=== PATIENT | female | born 1955 | race Caucasian/White ===

== ENCOUNTER → 2020-06-27 13:23 | Outpatient (CLI) | payer MEDICARE, OTHER, SELFPAY ==
--- NOTE | ~2020-06-27 | MM_ITS ---
EXAMINATION: MM screening [facility] BI w liza HISTORY: Screening mammogram TECHNIQUE: Craniocaudal and mediolateral oblique 3-D tomosynthesis images were obtained and synthetic 2-D images were generated. CAD analysis was submitted and interpreted. COMPARISON: 04/11/2019, 01/14/2019, 06/13/2016 BREAST PARENCHYMAL COMPOSITION: The breasts are almost entirely fatty. FINDINGS: Scattered benign-appearing calcifications are present. There is no evidence of suspicious m ass, calcification, or architectural distortion to suggest malignancy in either breast. There has bee n no suspicious interval change. IMPRESSION: 1. No mammographic evidence of malignancy. 2. Recommend routine screening mammography in one year. BI-RADS Category 2: Benign finding(s). Reviewed, dictated and finalized at location A. NG PRESS OPERATOR
== END ==
PROVIDERS: PCP Family Medicine; Visit Provider Family Medicine
DX: Z12.31 Encounter for screening mammogram for malignant neoplasm of breast (principal)
CPT/HCPCS: 77063; 77067

== ENCOUNTER → 2021-10-30 09:51 | Outpatient (CLI) | payer MEDICARE, OTHER, SELFPAY ==
--- NOTE | ~2021-10-30 | MM_ITS ---
EXAMINATION: MM screening [facility] BI w liza HISTORY: Screening TECHNIQUE: Craniocaudal and mediolateral oblique 3-D tomosynthesis images were obtained and synthetic 2-D images were generated. CAD analysis was submitted and interpreted. COMPARISON: Comparison to multiple prior studies sequentially, with oldest reviewed study dated 12/15. BREAST PARENCHYMAL COMPOSITION: Breast composed of scattered areas of fibroglandular density FINDINGS: There is no evidence of suspicious mass, calcification, or architectural distortion to sugg est malignancy in either breast. There has been no suspicious interval change. IMPRESSION: 1. No mammographic evidence of malignancy. 2. Recommend routine screening mammography in one year. BI-RADS Category 1: Negative Reviewed, dictated and finalized at location A.
== END ==
PROVIDERS: PCP Family Medicine; Visit Provider Family Medicine
DX: Z12.31 Encounter for screening mammogram for malignant neoplasm of breast (principal)
CPT/HCPCS: 77063; 77067

== ENCOUNTER 2022-05-19 01:25 | Day surgery (SDC) | payer MEDICARE, OTHER, SELFPAY ==
[2022-05-07 08:49] VITALS: BMI 44.5
[2022-05-19 08:46] VITALS: BP 170/98; PULSE 64; RESP 18; TEMP 36.2; O2SAT 99
[2022-05-19] MEDS: LACTATED RINGERS 1,000 ML 150 ML IV CONT (08:54)
--- NOTE | 2022-05-19 09:16 | PM.HPGS ---
History of Present Illness History of Present Illness Consent: Risks, benefits, and alternatives have been discussed and questions answered. Patient agrees to proceed with procedure. Chief complaint: GERD, neoplasm screening Narrative: Pat Martinez is a 67 year old female Presents for screening colonoscopy as well as EGD. Patient reports a history of chronic acid reflux disease. Currently well controlled on omeprazole 40mg p.o. daily. She notices prompt recurrence of heartburn when discontinuing this medication. Patient denies any bleeding. She has no dysphagia. She has had no weight loss. Previous EGD 5 years ago is reported to be unremarkable. Patient desires follow-up because of chronic symptoms an EGD will be performed today. Screening colonoscopy advised because of History of colon polyps.. Patient reports that her weight appetite and bowel movements are normal. Patient denies abdominal pain. She has had no bleeding. Family history noncontributory. Patient has had previous colon polyps on several previous occasions. Review of Systems Review of Systems: Review of systems noncontributory. [facility] Social History Social History Smoking status: Former smoker Tobacco type: cigarettes Living arrangements: with family Spiritual care concerns: No Meds Home Medications and Allergies Home Medications Medication Instructions Recorded Confirmed Type sodium,potassium,mag sulfates 17.5 See Rx Instructions PO .COMPLEX 04/08/22 Rx gram-3.13 gram-1.6 gram oral soln #354 mL (Suprep Bowel Prep Kit) aspirin 81 mg tablet 81 mg PO DAILY 05/07/22 05/07/22 History calcium 100 mg capsule 100 mg PO DAILY 05/07/22 05/07/22 History cholecalciferol (vitamin D3) 25 25 mcg PO DAILY 05/07/22 05/07/22 History mcg (1,000 unit) tablet (Vitamin D3) gabapentin 300 mg capsule 300 mg PO BID 05/07/22 05/07/22 History hydrochlorothiazide 25 mg tablet 25 mg PO DAILY 05/07/22 05/07/22 History levothyroxine 125 mcg tablet 125 mcg PO DAILY 05/07/22 05/19/22 History lisinopril 40 mg tablet 40 mg PO BID 05/07/22 05/07/22 History multivitamin 1 tablet PO DAILY 05/07/22 05/07/22 History omega-3 fatty acids 1,000 mg PO DAILY 05/07/22 05/07/22 History omeprazole 40 mg capsule,delayed 40 mg PO DAILY 05/07/22 05/07/22 History release Allergies Allergy/AdvReac Type Severity Reaction Status Date / Time adhesive Allergy Mild Blister Unverified 05/19/22 08:48 amlodipine Allergy Swelling Verified 05/19/22 08:48 acetaminophen AdvReac Mild NAUSEA/VOMI Unverified 05/19/22 08:48 TING hydrocodone AdvReac Mild NAUSEA/VOMI Unverified 05/19/22 08:48 TING meperidine AdvReac Mild NAUSEA/VOMI Unverified 05/19/22 08:48 TING morphine AdvReac Mild NAUSEA/VOMI Unverified 05/19/22 08:48 TING Vital Signs Vital Signs - 24 hr 05/19/22 08:46 Temperature 97.2 F L Pulse Rate 64 Respiratory Rate 18 Blood Pressure 170/98 H Pulse Oximetry 99 Oxygen Delivery Room Air Exam Narrative: Physical exam reveals patient to be alert. Vital signs stable. HEENT exam is unremarkable. Patient is anicteric. Lungs are clear to auscultation and percussion. Heart is without murmur or extra sounds. Abdomen Is obese. bowel sounds are present soft nontender with no organomegaly. Digital external rectal exam is normal. Assessment and Plan Assessment and plan (1) GERD (gastroesophageal reflux disease): Code(s): K21.9 - Gastro-esophageal reflux disease without esophagitis Status: Acute Assessment and Plan: Patient has chronic GE reflux. Plan to continue anti-reflux measures. Omeprazole 40mg p.o. daily is required. Further recommendations may be given after endoscopy. (2) History of colon polyps: Code(s): Z86.010 - Personal history of colonic polyps Status: Acute Assessment and Plan: Patient is had colon polyps on several previous occasions. Plan for surveillance col
--- NOTE | 2022-05-19 10:12 | SUR.OPER ---
EGD: [id number] Colonoscopy began at 1010
--- NOTE | 2022-05-19 10:13 | P.PNAN_ITS ---
Anes - Initial Pre Proc Eval Procedure: Operation Date: 05/19/22 10:00 Proposed Procedures p Esophagogastroduodenoscopy & Screening Colonoscopy - Polo Chambers MD Date/Time: 05/19/22 10:13 Surgeon: Polo Chambers MD Pre Op Diagnosis: GERD, neoplasm screening Patient Data Age: 67 Gender: F Height: 1.7 m Weight: 97.2 kg Last Vital Signs Temp 97.2 F L 05/19/22 08:46 Pulse 64 05/19/22 08:46 Resp 18 05/19/22 08:46 BP 170/98 H 05/19/22 08:46 Pulse Ox 99 05/19/22 08:46 O2 Del Method Room Air 05/19/22 08:46 Allergies Allergy/AdvReac Type Severity Reaction Status Date / Time adhesive Allergy Mild Blister Unverified 05/19/22 08:48 amlodipine Allergy Swelling Verified 05/19/22 08:48 acetaminophen AdvReac Mild NAUSEA/VOMI Unverified 05/19/22 08:48 TING hydrocodone AdvReac Mild NAUSEA/VOMI Unverified 05/19/22 08:48 TING meperidine AdvReac Mild NAUSEA/VOMI Unverified 05/19/22 08:48 TING morphine AdvReac Mild NAUSEA/VOMI Unverified 05/19/22 08:48 TING Home Medications Medication Instructions Recorded Confirmed Type sodium,potassium,mag sulfates 17.5 See Rx Instructions PO .COMPLEX 04/08/22 Rx gram-3.13 gram-1.6 gram oral soln #354 mL (Suprep Bowel Prep Kit) aspirin 81 mg tablet 81 mg PO DAILY 05/07/22 05/07/22 History calcium 100 mg capsule 100 mg PO DAILY 05/07/22 05/07/22 History cholecalciferol (vitamin D3) 25 25 mcg PO DAILY 05/07/22 05/07/22 History mcg (1,000 unit) tablet (Vitamin D3) gabapentin 300 mg capsule 300 mg PO BID 05/07/22 05/07/22 History hydrochlorothiazide 25 mg tablet 25 mg PO DAILY 05/07/22 05/07/22 History levothyroxine 125 mcg tablet 125 mcg PO DAILY 05/07/22 05/19/22 History lisinopril 40 mg tablet 40 mg PO BID 05/07/22 05/07/22 History multivitamin 1 tablet PO DAILY 05/07/22 05/07/22 History omega-3 fatty acids 1,000 mg PO DAILY 05/07/22 05/07/22 History omeprazole 40 mg capsule,delayed 40 mg PO DAILY 05/07/22 05/07/22 History release Patient hx anesthesia problems: none Family hx anesthesia problems: none Results Review: All pre-operative results and documents have been reviewed as part of the pre- operative evaluation. [facility] Social History Social History Smoking status: Former smoker Tobacco type: cigarettes Living arrangements: with family Spiritual care concerns: No Anes - Eval Final PreProcedure Day of Procedure 05/19/22 10:13 Patient weight: normal Heart: regular rate and rhythm Lungs: clear to auscultation Airway: Mallampati scale class II Neurological: alert and oriented Last oral intake: >/= 8 hours ASA classification: III Emergent: no Anesthetic plan: proceed Anesthesia type and monitoring: general GIVS and standard monitoring Results Review: All pre-operative results and documents have been reviewed as part of the pre- operative evaluation. Informed Consent: The patient's anesthetic plan and its attendant risks and benefits were discussed with the patient/family/POA. Questions were solicited and answers provided to the satisfaction of the patient/family/POA.
[2022-05-19 10:25] VITALS: BP 124/72; PULSE 72; RESP 18; O2SAT 100
[2022-05-19 10:35] VITALS: BP 126/76; PULSE 67; RESP 18; O2SAT 99
[2022-05-19 10:45] VITALS: BP 128/86; PULSE 63; RESP 18; O2SAT 98
== END 2022-05-19 10:53 | disposition home or self-care (01) ==
PROVIDERS: PCP Family Medicine; Visit Provider Internal Medicine Gastroenterology
PROC: 0DJ08ZZ Inspection of Upper Intestinal Tract, Via Natural or Artificial Opening Endoscopic (ICD-10-PCS; CPT 43235; principal; 2022-05-19 10:00)
DX: Z12.11 Encounter for screening for malignant neoplasm of colon (principal); K57.30 Diverticulosis of large intestine without perforation or abscess without bleeding; K64.8 Other hemorrhoids; Z86.010 Personal history of colon polyps; K21.9 Gastro-esophageal reflux disease without esophagitis; Z87.891 Personal history of nicotine dependence; E66.09 Other obesity due to excess calories; Z68.33 Body mass index [BMI] 33.0-33.9, adult
CPT/HCPCS: 43239; G0105; 87081; J2704; J7120

== ENCOUNTER → 2023-05-22 10:35 | Outpatient (CLI) | payer MEDICARE, OTHER, SELFPAY ==
--- NOTE | ~2023-05-22 | MM_ITS ---
EXAMINATION: MM screening [facility] BI w liza HISTORY: Screening TECHNIQUE: Craniocaudal and mediolateral oblique 3-D tomosynthesis images were obtained and synthetic 2-D images were generated. CAD analysis was submitted and interpreted. COMPARISON: Comparison to multiple prior studies sequentially, with oldest reviewed study dated 08/2014. BREAST PARENCHYMAL COMPOSITION: Breast composed of scattered areas of fibroglandular density FINDINGS: There is no evidence of suspicious mass, calcification, or architectural distortion to sugg est malignancy in either breast. There has been no suspicious interval change. IMPRESSION: 1. No mammographic evidence of malignancy. 2. Recommend routine screening mammography in one year. BI-RADS Category 1: Negative Reviewed, dictated and finalized at location A. OPERATOR
== END ==
PROVIDERS: PCP Family Medicine; Visit Provider Family Medicine
DX: Z12.31 Encounter for screening mammogram for malignant neoplasm of breast (principal)
CPT/HCPCS: 77063; 77067

== ENCOUNTER 2023-06-15 20:31 | Emergency (ER) | payer MEDICARE, OTHER, SELFPAY ==
[2023-06-15 20:34] VITALS: BP 179/115; PULSE 97; RESP 16; TEMP 36.7; O2SAT 100
[2023-06-15 20:49] LABS: Basophils Absolute Auto 0.1 K/mm3 (0.0-0.1); Basophils Percent Auto 1.1 % (0.2-1.2); Eosinophils Absolute Auto 0.3 K/mm3 (0-0.3); Eosinophils Percent Auto 4.5 % (0-4.4); Hematocrit 43.7 % (37.0-47.0); Hemoglobin 13.7 g/dL (12.0-15.0); Immature Granulocyte Absolute 0.01 K/mm3 (0.00-0.031); Immature Granulocyte Percent A 0.1 % (0-0.5); Lymphocytes Percent Auto 40.4 % (18.3-44.2); Mean Corpuscular HGB Conc 31.4 g/dl (32-36); Mean Corpuscular Hemoglobin 28.2 pg (26-34); Mean Corpuscular Volume 89.9 fl (80-100); Mean Platelet Volume 10.2 fl (7.4-10.4); Monocytes Absolute Auto 0.7 K/mm3 (0.1-0.6); Monocytes Percent Auto 10.2 % (2.6-8.5); Neutrophils Absolute Auto 3.1 K/mm3 (1.3-6.7); Neutrophils Percent Auto 43.7 % (45.5-73.1); Platelet Count Result 282 k/mm3 (150-375); Red Blood Count 4.86 M/mm3 (4.2-5.4); Red Cell Distribution Width 16.3 % (11.5-14.5); White Blood Count 7.2 K/mm3 (4.5-10.0)
[2023-06-15 20:59] LABS: Alanine Aminotransferase 31 U/L (6-35); Albumin Level 4.2 g/dL (3.5-5.1); Alkaline Phosphatase 89 U/L (38-126); Anion Gap 5 mmol/L (8-16); Aspartate Amino Transferase 34 U/L (14-36); Bilirubin,Total 0.6 mg/dL (0.2-1.3); Blood Urea Nitrogen 32 mg/dL (7-17); Calcium 9.7 mg/dL (8.4-10.2); Carbon Dioxide 28 mmol/L (22-30); Chloride 106 mmol/L (98-107); Estimated CRCL calculation 71 ml/min; Estimated Glomerular Filt Rate > 60; Glucose 115 mg/dL (65-110); Potassium 3.8 mmol/L (3.4-5.0); Sodium 139 mmol/L (137-145)
[2023-06-15 21:01] LABS: Partial Thromboplastin Time 27.8 SECONDS (22.3-36.8)
[2023-06-15] MEDS: LORazepam INJ (*CRX) 2 MG/ML VIAL 1 MG IM (22:35)
--- NOTE | 2023-06-15 23:36 | ED.GENADULT ---
HPI - General Adult General Chief complaint: Epistaxis Stated complaint: nose bleed Time Seen by Provider: 06/15/23 21:11 History of Present Illness HPI narrative: this is a 68-year-old female history of anxiety presenting with epistaxis. Patient started have bleeding of her nose earlier today. She went to [facility] 3 times throughout day. First time they controlled her bleeding with direct pressure, 1 and start rebleeding they packed it with Vaseline gauze, with that did not control bleeding a small rhino rocket. The rhino rocket and dislodged after the patient left. She came here requesting to see ENT. No other complaints. No use of blood thinners. Related Data Home Medications Medication Instructions Recorded Confirmed aspirin 81 mg tablet 81 mg PO DAILY 05/07/22 05/07/22 calcium 100 mg capsule 100 mg PO DAILY 05/07/22 05/07/22 cholecalciferol (vitamin D3) 25 25 mcg PO DAILY 05/07/22 05/07/22 mcg (1,000 unit) tablet (Vitamin D3) gabapentin 300 mg capsule 300 mg PO BID 05/07/22 05/07/22 hydrochlorothiazide 25 mg tablet 25 mg PO DAILY 05/07/22 05/07/22 levothyroxine 125 mcg tablet 125 mcg PO DAILY 05/07/22 05/19/22 lisinopril 40 mg tablet 40 mg PO BID 05/07/22 05/07/22 multivitamin 1 tablet PO DAILY 05/07/22 05/07/22 omega-3 fatty acids 1,000 mg PO DAILY 05/07/22 05/07/22 omeprazole 40 mg capsule,delayed 40 mg PO DAILY 05/07/22 05/07/22 release Allergies Allergy/AdvReac Type Severity Reaction Status Date / Time adhesive Allergy Mild Blister Verified 06/15/23 22:36 amlodipine Allergy Swelling Verified 06/15/23 22:36 hydrocodone AdvReac Mild NAUSEA/VOMI Verified 06/15/23 22:36 TING meperidine AdvReac Mild NAUSEA/VOMI Verified 06/15/23 22:36 TING morphine AdvReac Mild NAUSEA/VOMI Verified 06/15/23 22:36 TING PMFSH Past Medical History Medical History Anxiety Social History Social History Smoking status: Former smoker Tobacco type: cigarettes Living arrangements: with family Spiritual care concerns: No Exam Narrative: APPEARANCE: No apparent distress. Head: Bleeding from the right Nare, no visible lesion in the nose EYES: EOMI, NOSE: Atraumatic NECK: Trachea midline RESPIRATORY: No increased rate of breathing CARDIOVASCULAR: RRR, ABDOMINAL: Non-distended MUSCULOSKELETAl: No obvious deformities NEURO: Alert. Moving 4/4 extremities SKIN:: Warm, dry. Normal color PSYCHIATRIC: Normal affect Course Vital Signs Vital signs: Vital Signs Temperature 98.0 F 06/15/23 20:34 Pulse Rate 97 06/15/23 20:34 Respiratory Rate 16 06/15/23 20:34 Blood Pressure 179/115 H 06/15/23 20:34 Pulse Oximetry 100 06/15/23 20:34 Oxygen Delivery Room Air 06/15/23 20:34 Temperature 98.0 F 06/15/23 20:34 Pulse Rate 97 06/15/23 20:34 Respiratory Rate 16 06/15/23 20:34 Blood Pressure 179/115 H 06/15/23 20:34 Pulse Oximetry 100 06/15/23 20:34 Oxygen Delivery Room Air 06/15/23 20:34 Procedures Epistaxis Control bilateral: Epistaxis Control Date: 06/15/23 Time Out Performed: No Direct Inspection: yes and unable to visualize Clots Removed by: blowing nose Cautery Used: none Device Inserted: nasal tampon Device Size: 7 Patient Tolerated Procedure: well Complications: other (anxiety) Medical Decision Making MDM Narrative Medical decision making narrative: -Course: 68-year-old female presenting with epistaxis. Patient had dual route right a rocket placed that controlled her bleeding. She did have to receive anxiolysis due to a panic attack. Patient wants to see ENT however there is no indication for ENT consultation is her bleeding is controlled with the rhino rockets. Patient will be discharged with outpatient follow-up return precautions. -DDX includes but is not limi
[2023-06-15 23:54] VITALS: BP 127/79; PULSE 60; RESP 16; TEMP 36.6; O2SAT 100
== END 2023-06-15 23:55 | disposition home or self-care (01) ==
PROVIDERS: Physician Assistant; Emergency Provider Emergency Medicine; PCP Family Medicine
DX: R04.0 Epistaxis (principal); F41.9 Anxiety disorder, unspecified; Z87.891 Personal history of nicotine dependence; Z79.82 Long term (current) use of aspirin
CPT/HCPCS: 30901; 36415; 80053; 85025; 85610; 85730; 96372; 99283; J2060

== ENCOUNTER 2024-08-10 13:05 | Outpatient (CLI) | payer MEDICARE, OTHER, SELFPAY ==
--- NOTE | ~2024-08-10 | MM_ITS ---
EXAMINATION: MM screening [facility] BI w liza HISTORY: Screening TECHNIQUE: Craniocaudal and mediolateral oblique 3-D tomosynthesis images were obtained and synthetic 2-D images were generated. CAD analysis was submitted and interpreted. COMPARISON: Comparison to multiple prior studies sequentially, with oldest reviewed study dated 06/27. BREAST PARENCHYMAL COMPOSITION: Not Dense: The breasts are almost entirely fatty. FINDINGS: There is no evidence of suspicious mass, calcification, or architectural distortion to sugg est malignancy in either breast. There has been no suspicious interval change. IMPRESSION: 1. No mammographic evidence of malignancy. 2. Recommend routine screening mammography in one year. BI-RADS Category 1: Negative Reviewed, dictated and finalized at location A.
== END 2024-08-10 13:06 | disposition home or self-care (01) ==
LOC: MICIMG 13:05
PROVIDERS: PCP Family Medicine; Visit Provider Family Medicine
DX: Z12.31 Encounter for screening mammogram for malignant neoplasm of breast (principal)
CPT/HCPCS: 77063; 77067